=== PATIENT | male | born 1980 | race Caucasian/White ===

== ENCOUNTER 2016-05-27 01:14 | Emergency (ER) | payer MEDICAID ==
[~2016-05-27] VITALS: Ht 175.3 cm; Wt 80.5 kg
[~2016-05-27 01:14] MED LIST: AMOX1TAB12 PO; HYDR-3138 PO
[2016-05-27 01:15] VITALS: BP 132/87
[2016-05-27] MEDS ORDERED: HYDROcodone/APAP 5/325 TABLET PO ONE (02:00)
== END 2016-05-27 02:04 | disposition home or self-care (01) ==
LOC: ED 01:51
DX: L03.011 Cellulitis of right finger (principal); G89.11 Acute pain due to trauma
CPT/HCPCS: 99283

== ENCOUNTER 2017-09-26 19:22 | Emergency (ER) | payer MEDICAID ==
[~2017-09-26] VITALS: Ht 175.3 cm; Wt 85.4 kg
[~2017-09-26 19:22] MED LIST changes: -HYDR-3138 PO; +HYDR-3237 PO
[2017-09-26 19:23] VITALS: BP 148/88
== END 2017-09-26 20:39 | disposition home or self-care (01) ==
LOC: ED 20:30
DX: L03.113 Cellulitis of right upper limb (principal)
CPT/HCPCS: 99284

== ENCOUNTER 2017-10-20 15:18 | Emergency (ER) | payer MEDICAID ==
[~2017-10-20] VITALS: Ht 175.3 cm; Wt 83.0 kg
[2017-10-20 15:28] VITALS: BP 121/82
== END 2017-10-20 16:40 | disposition home or self-care (01) ==
LOC: ED 16:20
DX: L03.115 Cellulitis of right lower limb (principal); F17.200 Nicotine dependence, unspecified, uncomplicated
CPT/HCPCS: 99283